=== PATIENT | female | born 1980 | race African-American/Black ===

== ENCOUNTER 2016-12-30 16:36 | Emergency (ER) | payer OTHER ==
[~2016-12-30] VITALS: Ht 160 cm; Wt 62.1 kg
[2016-12-30 17:29] LABS: HEMATOCRIT 42.4 % (36.0-46.0); MCH 26.3 PG (29.0-34.0); MCHC 31.4 G/DL (30.0-36.0); MEAN PLAT.VOLUME 10.2 uM^3 (9.5-12.4); PLATELET COUNT 233 K/uL (156-360); RED BLOOD COUNT 5.05 M/uL (3.80-5.20); WHITE BLOOD COUNT 4.2 K/uL (4.1-10.2)
[2016-12-30 17:41] LABS: CHLORIDE 105 mEq/L (99-109); POTASSIUM 4.4 mEq/L (3.7-5.4); SODIUM 138 mEq/L (136-147)
[2016-12-30 17:43] LABS: GLUCOSE 88 mg/dL (70-99)
[2016-12-30 17:44] LABS: ANION GAP 8 MEQ/L (2-14)
[2016-12-30 17:45] LABS: TOTAL BILIRUBIN 0.4 mg/dL (0.0-1.0)
[2016-12-30 17:46] LABS: ADD MIUA? NO; BILIRUBIN NEGATIVE; BLOOD NEGATIVE; COLOR YELLOW ((YELLOW)); GLUCOSE (STRIP) NEGATIVE; KETONES NEGATIVE; LEUKOCYTES NEGATIVE; NITRITE NEGATIVE; PROTEIN (STRIP) 30; SPECIFIC GRAVITY 1.015 (1.000-1.030); UCUL ADDED? NO; UROBILINOGEN 0.2 MG/DL (0.2-1.0)
[2016-12-30 17:46] LABS: ALKALINE PHOSPHATASE 68 IU/L (3-129)
[2016-12-30 17:47] LABS: GFR ESTIMATE (CALCULATED) > 59 mL/min/
[2016-12-30 17:48] LABS: UREA NITROGEN (BUN) 6 mg/dL (9-23)
[2016-12-30 17:55] LABS: QUANTITATIVE HCG < 4.0 MIU/ML
[2016-12-30 19:20] VITALS: BP 104/72
== END 2016-12-30 19:21 | disposition home or self-care (01) ==
LOC: EME 16:36
DX: N83.202 Unspecified ovarian cyst, left side (principal); R10.31 Right lower quadrant pain; R19.7 Diarrhea, unspecified
CPT/HCPCS: 74177; 80053; 81003; 84702; 85027; 99281; 99283; J7030